=== PATIENT | male | born 1995 | race Caucasian/White ===

== ENCOUNTER 2016-11-29 19:19 | Emergency (ER) | payer MEDICAID ==
[2016-11-29 19:59] LABS: % IMMATURE GRANULYOCYTES 0.2 % (0.0-1.1); ABSOLUTE IMMATURE GRANULOCYTES 0.02 10^3/uL (0.00-0.10); ADD DIFF? NO; ADD MORPH? NO; ADD SCAN? NO; ATYPICAL LYMPHOCYTE FLAG 10 (0-99); FRAGMENT RBC FLAG 0 (0-99); HEMATOCRIT 45.2 % (40.0-51.0); HEMOGLOBIN 15.5 g/dL (13.7-17.5); LEFT SHIFT FLG 0 (0-99); LIPEMIA HEMOLYSIS FLAG 90 (0-99); MEAN CELL HEMOGLOBIN 30.9 pg (27.9-34.1); MEAN CELL HEMOGLOBIN CONCENTR. 34.3 g/dL (32.4-36.7); MEAN PLATELET VOLUME 8.7 fL (8.7-11.7); PLATELET CLUMPS FLAG 0 (0-99); PLATELET COUNT 308 10^3/uL (150-400); RED BLOOD CELL COUNT 5.02 10^6/uL (4.40-6.38); RED CELL DISTRIBUTION WIDTH 12.3 % (11.5-15.2)
[2016-11-29 20:06] LABS: ANION GAP 11 mEq/L (8-16); CALCIUM 9.5 mg/dL (8.5-10.4); CARBON DIOXIDE 21 mEq/l (22-31); CHLORIDE 108 mEq/L (97-110); CREATININE 0.8 mg/dL (0.7-1.3); ETHANOL SERUM < 10 mg/dL (0-10); GLOMERULAR FILTRATION RATE > 60; GLUCOSE 91 mg/dL (70-100); POTASSIUM 3.9 mEq/L (3.5-5.2); SALICYLATE < 1.0 mg/dL (2.0-20.0); SODIUM 140 mEq/L (134-144)
[2016-11-29] MEDS ORDERED: NICOTINE 14 MG/24 HR PATCH TD ONE (21:02)
[2016-11-29] MEDS ORDERED: LORazepam 1 MG TAB ONE (21:57)
[2016-11-29] MEDS ORDERED: LORazepam 1 MG TAB PO ONE ×2 (21:58→23:49)
--- NOTE | 2016-11-29 22:09 | EDPHY ---
H & P Stated Complaint: SI Source: Patient, Family Exam Limitations: No limitations - Personal History Current Tetanus/Diphtheria Vaccine: Yes Current Tetanus Diphtheria and Acellular Pertussis (TDAP): Yes - Medical/Surgical History Hx Asthma: No Hx Chronic Respiratory Disease: No Hx Diabetes: No Hx Cardiac Disease: No Hx Renal Disease: No Hx Cirrhosis: No Hx Alcoholism: No Hx HIV/AIDS: No Hx Splenectomy or Spleen Trauma: No - Social History Smoking Status: Unknown if ever smoked HPI/ROS: CHIEF COMPLAINT: M1, suicidal ideation, depression HISTORY OF PRESENT ILLNESS: Patient presents from [facility] with an M1 hold due to suicidal ideation. He presented there today with his mother due to depression and thoughts of self-harm. He will not elaborate on how he wanted to hurt himself. He does express intent of wanting to harm himself. He has a history of depression, not currently on medications. He was on Prozac in the past that did not benefit him. He has had no recent trauma or injury. He has no ingestion of any medications today. He has not attempted to harm himself today. He does have a history of recent break-up from a significant other this week. He will not provide any other information thus far. PSYCHIATRIC DIAGNOSES: Depression, previous suicide attempt PRIOR PSYCHIATRIC EVALUATIONS: Multiple, most recently 5 years ago M1/DETAINER: 6:40 p.m. by [facility] professional REVIEW OF SYSTEMS: Ten systems reviewed and are negative unless otherwise noted in the HPI EXAMINATION General Appearance: Alert, no distress, pacing the room Head: normocephalic, atraumatic Eyes: Pupils equal and round, no conjunctival pallor or injection ENT, Mouth: Mucous membranes moist Neck: Normal inspection Respiratory: Lungs are clear to auscultation. No wheezing, rhonchi or crackles Cardiovascular: Regular rate and rhythm. No murmur. Gastrointestinal: No abdominal distention Back: Normal appearance Neurological: GCS 15. A&O, nonfocal, normal gait Skin: Warm and dry, no rash Extremities: Nontender, no pedal edema Psychiatric: Flat affect. Depressed mood. Admits suicidal ideation. Denies any actual plan. He does admit to intent of self-harm. Denies any ingestion of pills. Denies any attempt to actually harm himself today DIFFERENTIAL DIAGNOSES: Including but not limited to major depression, suicidal ideation, suicide attempt, suicidal intent, mood disorder MDM: 7:30 p.m. Suicidal ideation without a clear plan. Mother corroborates that he has attempted suicide in the past twice. He has been diagnosed with depression but currently on medication. He is here on an M1 hold completed at 6:40 p.m. by mental [facility]. 9:00 p.m. Patient has been medically cleared and is awaiting formal evaluation and placement. He is in no acute distress. He is pacing but cooperative otherwise. 10:05 p.m. Notified by ADORE mtz. Patient is pacing and attempting to leave the emergency department. He has requested Ativan by mouth and I agree this would benefit the patient. He still awaiting placement at this time. 11:45 p.m. Notified by Araceli AVITIA. Patient attempted to elope from the emergency department again. He was restrained with soft, passive her strengths and this has been documented. I have ordered another dose of Ativan. He is still awaiting placement at this time. 1:43 a.m. Patient is still pacing in his room. He is verbalized that he will stay in the room and not attempt to leave again. We are still awaiting placement at this time. 1:57 a.m. At this time I have discussed the case with Dr. Cantrell. She will assume care of the patient. Please see her note for final disposition. SUPERVISION: Patient was evaluated in conjunction with the supervising physician. Please see their note for details. (Willie Robert) Constitutional: Initial Vital Signs Temperature (C) 36.9 C 11/29/16 19:30 Heart Rate 80 11/29/16 19:30 Respiratory Rate 14 11/29/16 19:30 Blood Pressure 122/78 H 11/29/16 19:30 O2 Sat (%) 94 11/29/16 19:30 O2 Delivery Mode Room Air Allergies/Adverse Reactions: No Known Allergies Allergy (Unverified 11/29/16 21:20) Medical Decision Making ED Course/Re-evaluation: 7:00 a.m.- The patient has been stable throughout my shift. At 2:30 a.m. the patient was evaluated by the mental health worker. The plan is to place the patient voluntarily at a crisis stabilization unit. I have ordered the patient's usual daily medications. The case will be signed out to the oncoming provider, Dr. Angelo. (Ursula Cantrell) The patient was stable throughout my shift. Care was signed over to Dr. Cantrell (Ayaz Simon) - Data Points Laboratory Results: Laboratory Results 11/29/16 19:50 11/29/16 19:50 Medications Given: Discontinued Medications Lorazepam (Ativan) 1 mg PO EDNOW ONE Stop: 11/29/16 21:59 Last Admin: 11/29/16 22:05 Dose: 1 mg Lorazepam (Ativan) 1 mg PO EDNOW ONE Stop: 11/29/16 23:50 Last Admin: 11/30/16 00:09 Dose: 1 mg Nicotine (Nicoderm Cq) 14 mg TD EDNOW ONE Stop: 11/29/16 21:03 Last Admin: 11/29/16 21:20 Dose: 14 mg Departure - Departure Disposition: Other Psych, Not [place] Clinical Impression: Suicidal ideation Condition: Good Referrals: Patient,NotPresent [Unknown] - As per Instructions
[2016-11-30 10:36] VITALS: BP 144/79; PULSE 98; RESP 18; TEMP 98.6; O2SAT 96
== END 2016-11-30 10:38 ==
DX: R45.851 Suicidal ideations (principal)
CPT/HCPCS: 80305; G0480

== ENCOUNTER 2017-01-09 16:20 | Emergency (ER) | payer MEDICAID ==
--- NOTE | 2017-01-09 16:59 | EDPHY ---
H & P Stated Complaint: SI-M1 Source: Patient Exam Limitations: No limitations - Personal History Current Tetanus/Diphtheria Vaccine: Unsure Current Tetanus Diphtheria and Acellular Pertussis (TDAP): Unsure - Medical/Surgical History Hx Asthma: No Hx Chronic Respiratory Disease: No Hx Diabetes: No Hx Cardiac Disease: No Hx Renal Disease: No Hx Cirrhosis: No Hx Alcoholism: No Hx HIV/AIDS: No Hx Splenectomy or Spleen Trauma: No Other PMH: PMH: Denies - Family History Significant Family History: No pertinent family hx - Social History Smoking Status: Unknown if ever smoked Alcohol Use: Sober Drug Use: None Time Seen by Provider: 01/09/17 16:51 HPI/ROS: CHIEF COMPLAINT: Depression HISTORY OF PRESENT ILLNESS: The patient is a 21-year-old female transitioning to male who prefers to be called Torito who is sent from [facility] on a M1 hold for suicidal ideations. He denies any attempt to harm himself today. No drugs or alcohol recently. History of depression. History of psychiatric hospitalization last month. REVIEW OF SYSTEMS: Constitutional: denies: chills, fever, recent illness, recent injury EENTM: denies: blurred vision, double vision, nose congestion Respiratory: denies: cough, shortness of breath Cardiac: denies: chest pain, irregular heart rate, lightheadedness, palpitations Gastrointestinal/Abdominal: denies: abdominal pain, diarrhea, nausea, vomiting, blood streaked stools Genitourinary: denies: dysuria, frequency, hematuria, pain Musculoskeletal: denies: joint pain, muscle pain Skin: denies: lesions, rash, jaundice, bruising Neurological: denies: headache, numbness, paresthesia, tingling, dizziness, weakness Hematologic/Lymphatic: denies: blood clots, easy bleeding, easy bruising Immunologic/allergic: denies: HIV/AIDS, transplant EXAM: GENERAL: Decreased affect HEAD: Atraumatic, normocephalic. EYES: Pupils equal round and reactive to light, extraocular movements intact, sclera anicteric, conjunctiva are normal. ENT: TMs normal, nares patent, oropharynx clear without exudates. Moist mucous membranes. NECK: Normal range of motion, supple without lymphadenopathy or JVD. LUNGS: Breath sounds clear to auscultation bilaterally and equal. No wheezes rales or rhonchi. HEART: Regular rate and rhythm without murmurs, rubs or gallops. ABDOMEN: Soft, nontender, normoactive bowel sounds. No guarding, no rebound. No masses appreciated. BACK: No CVA tenderness, no spinal tenderness, step-offs or deformities EXTREMITIES: Normal range of motion, no pitting or edema. No clubbing or cyanosis. NEUROLOGICAL: Cranial nerves II through XII grossly intact. Normal speech, normal gait. 5/5 strength, normal movement in all extremities, normal sensation PSYCH: Depressed affect, minimal interaction, does answer most questions appropriately SKIN: Warm, dry, normal turgor, no visible rashes or lesions. (Richard Hu) Constitutional: Initial Vital Signs Temperature (C) 36.8 C 01/09/17 16:35 Heart Rate 105 H 01/09/17 16:35 Respiratory Rate 18 01/09/17 16:35 Blood Pressure 123/81 H 01/09/17 16:35 O2 Sat (%) 96 01/09/17 16:35 O2 Delivery Mode Room Air Allergies/Adverse Reactions: aripiprazole [From [employer]] Allergy (Verified 01/09/17 16:46) Home Medications: Medication Instructions Recorded [place] Carbonate Tab 300 mg (*) 01/09/17 Prazosin HCl 01/09/17 Vistaril 50MG (RX) 01/09/17 Wellbutrin Xl 01/09/17 ZyPREXA 10 mg/2 ml Inj (*) 01/09/17 Medical Decision Making ED Course/Re-evaluation: 9:50 p.m. Patient has been evaluated by Mental Health. They plan to admit him. We will give him his nighttime medications. 11:00 p.m. care transferred to Dr. Dion Khalil. (Richard Hu) Other Provider: I assumed care of this patient at 7:[address] Dion Khalil. At 7:30 a.m. was notified by nursing staff that the patient has been accepted for transfer and admission to [facility] in [place]. Transfer paperwork was signed by myself. (Kate Solomon) - Data Points Laboratory Results: Laboratory Results 01/09/17 17:08 01/09/17 17:08 Medications Given: Discontinued Medications Shanor-Northvue Carbonate (Eskalith Cr) 900 mg PO EDNOW ONE Stop: 01/09/17 22:01 Last Admin: 01/09/17 22:09 Dose: 900 mg Lorazepam (Ativan) 1 mg PO EDNOW ONE Stop: 01/09/17 19:27 Last Admin: 01/09/17 19:28 Dose: 1 mg Nicotine (Nicoderm Cq) 21 mg TD EDNOW ONE Stop: 01/09/17 17:32 Last Admin: 01/09/17 17:32 Dose: 21 mg Olanzapine (Olanzapine) 10 mg PO EDNOW ONE Stop: 01/09/17 22:01 Last Admin: 01/09/17 22:09 Dose: 10 mg Trazodone HCl (Trazodone) 150 mg PO EDNOW ONE Stop: 01/09/17 22:16 Last Admin: 01/09/17 22:20 Dose: 150 mg Departure - Departure Disposition: Other Psych, Not [place] Clinical Impression: Suicidal ideation Condition: Good Referrals: NONE *PRIMARY CARE P,. [Primary Care Provider] - As per Instructions
[2017-01-09 17:23] LABS: % IMMATURE GRANULYOCYTES 0.1 % (0.0-1.1); ABSOLUTE IMMATURE GRANULOCYTES 0.01 10^3/uL (0.00-0.10); ADD DIFF? NO; ADD MORPH? NO; ADD SCAN? NO; ATYPICAL LYMPHOCYTE FLAG 10 (0-99); FRAGMENT RBC FLAG 0 (0-99); HEMATOCRIT 41.5 % (38.0-47.0); HEMOGLOBIN 13.7 g/dL (12.6-16.3); LEFT SHIFT FLG 0 (0-99); LIPEMIA HEMOLYSIS FLAG 80 (0-99); MEAN CELL HEMOGLOBIN 30.9 pg (27.9-34.1); MEAN CELL VOLUME 93.5 fL (81.5-99.8); MEAN PLATELET VOLUME 8.1 fL (8.7-11.7); PLATELET CLUMPS FLAG 0 (0-99); PLATELET COUNT 318 10^3/uL (150-400); RED BLOOD CELL COUNT 4.44 10^6/uL (4.18-5.33); RED CELL DISTRIBUTION WIDTH 12.2 % (11.5-15.2)
[2017-01-09] MEDS ORDERED: NICOTINE 21 MG/24 HR PATCH TD ONE (17:31)
[2017-01-09 17:40] LABS: ANION GAP 13 mEq/L (8-16); CALCIUM 9.7 mg/dL (8.5-10.4); CARBON DIOXIDE 23 mEq/l (22-31); CHLORIDE 106 mEq/L (97-110); CREATININE 0.9 mg/dL (0.6-1.0); ETHANOL SERUM < 10 mg/dL (0-10); GLOMERULAR FILTRATION RATE > 60; GLUCOSE 103 mg/dL (70-100); POTASSIUM 4.2 mEq/L (3.5-5.2); SODIUM 142 mEq/L (134-144)
[2017-01-09] MEDS ORDERED: LORazepam 1 MG TAB ONE (19:23)
[2017-01-09] MEDS ORDERED: LORazepam 1 MG TAB PO ONE (19:26)
[2017-01-09] MEDS ORDERED: LITHIUM CARBONATE ER 450 MG TAB PO ONE (22:00)
[2017-01-09] MEDS ORDERED: OLANZapine 5 MG TAB PO ONE (22:00)
[2017-01-10 06:41] VITALS: O2SAT 97
[2017-01-10 07:15] VITALS: RESP 16
[2017-01-10 08:07] VITALS: BP 112/67; PULSE 69; TEMP 97.5
== END 2017-01-10 09:15 ==
LOC: EDSEX 16:20
DX: R45.851 Suicidal ideations (principal)
CPT/HCPCS: 80305; G0480

== ENCOUNTER 2017-03-05 16:41 | Emergency (ER) | payer MEDICAID ==
[2017-03-05] MEDS ORDERED: OLANZapine DISINTEGR 10 MG TAB ONE (17:00)
--- NOTE | 2017-03-05 17:00 | EDPHY ---
H & P Smoking Status: Unknown if ever smoked HPI/ROS: CHIEF COMPLAINT: M1 Hold HISTORY OF PRESENT ILLNESS: The patient is a 21-year-old female transitioning to male, prefers to be called Torito, who is here on an M1 hold for SI/HI. The patient was at [facility]. After stabilization, they discharged him to the [facility]. The patient left the [facility] and PD went to pick him up. When PD tried to take the patient back to the [facility], he told them he was suicidal and homicidal. He was placed on an M1 hold by PD. History is quite limited, as the patient refuses to answer most of my questions. He denies recent sickness. REVIEW OF SYSTEMS: A comprehensive 10 point review of systems is otherwise negative aside from elements mentioned in the history of present illness. (Cheryl Tirado) Past Medical/Surgical History: Unknown. (Cheryl Tirado) Social History: Unknown. (Cheryl Tirado) Physical Exam: General Appearance: Refuses to answer questions or allow me to touch him ( stethoscope is ok) Eyes: Pupils equal and round ENT, Mouth: Mucous membranes moist Neck: Normal inspection Respiratory: Lungs are clear to auscultation Cardiovascular: Regular rate and rhythm Gastrointestinal: Abdomen is soft and non-tender Neurological: A&O, nonfocal, normal gait Skin: Warm and dry Extremities: normal inspection Psychiatric: Pacing, Agitated, uncooperative, threatening (Cheryl Tirado) Constitutional: Initial Vital Signs Temperature (C) 36.7 C 03/05/17 16:57 Heart Rate 88 03/05/17 16:57 Respiratory Rate 18 03/05/17 16:57 Blood Pressure 129/86 H 03/05/17 16:57 O2 Sat (%) 96 03/05/17 16:57 O2 Delivery Mode Room Air O2 (L/minute) 95 Allergies/Adverse Reactions: aripiprazole [From [employer]] Allergy (Verified 01/09/17 16:46) Home Medications: Medication Instructions Recorded [place] Carbonate Tab 300 mg (*) 01/09/17 Prazosin HCl 01/09/17 Vistaril 50MG (RX) 01/09/17 Wellbutrin Xl 01/09/17 ZyPREXA 10 mg/2 ml Inj (*) 01/09/17 Celexa 03/05/17 GABAPENTIN 03/05/17 KLONOPIN 03/05/17 Medical Decision Making - Diagnostics Imaging Results: Imaging Impressions Hand X-Ray 03/09/17 12:22 Impression: Nothing acute identified. ED Course/Re-evaluation: 6:20 p.m. the patient is going to be admitted. He has been evaluated. She is requesting some Zyprexa and gabapentin. 11:00 p.m. care transferred to Dr. Ursula Cantrell. Patient is sleeping and we are awaiting placement. (Richard Hu) 7:00 a.m.- . The patient was stable throughout my shift. There were no events overnight. He is awaiting placement at this time. The case will be signed out to Dr. Nuñez at change of shift. (Ursula Cantrell) Patient here on M1 hold. Patient refuses to answer my questions. He is pacing the room and does not want me to examine him. Patient declines blood draw per nursing staff. He is refusing Zyprexa. 5:30 p.m.: According to nursing staff, patient is agreeing to blood draw and is requesting something to help him calm down. Zyprexa given. Plan to administer 1mg Ativan IV. Urine toxicology is positive for benzodiazepines. Medically cleared for psych eval. 11pm--pt much more calm. Signed over to Dr. Khalil at shift change. Dispo pending. (Cheryl Tirado) I assumed care of this patient at 7 AM on 03/07/[address] Cantrell. Patient has no new complaints at the time of my interview. He tells me that he is "always" suicidal, has no active plan now. He would like to be discharged. His care will be transferred to Dr. Monaco at 3 PM. (Talisha Nuñez) 1242AM: Patient has been evaluated by mental health. They recommend inpatient psychiatric hospitalization will perform a bed search at this time. 0622AM 04/07/17: No acute events overnight. Patient has been sleeping. Patient signed over to Dr. Cullen. 0639AM: 04/08/17: No acute events overnight. Sleeping. Patient was placed on a 2nd M1 hold previous to my shift. Still pending placement. Signed over to Dr. Sehikh (Dion Khalil) Other Provider: I assumed care of the patient at 7 o'clock in the morning pending psychiatric disposition. Update at 11:00 a.m.: Psychiatric placement is still pending. The patient was seen by Mental Health. They feel that he does need to be maintained on a 72 hour mental health hold even after this one expires. The patient will be turned over to Dr. Mcdonough at shift change pending psychiatric disposition. (Blas Cullen) Care assumed at 6:30 a.m. with plan per Psychiatry mining consultant to admit, pending disposition. Patient still on a mental health hold. Right hand x-ray for pain after trauma is negative (Nakul Sheikh) Care Turn Over: 0700 care assumed by me from Dr. Khalil pending placement. [address] Hu pending placement. Patient did get increasingly agitated during my stay and required p.o. Zyprexa. Further issues during my care. 1500 03/07/17 care assumed by me from Dr. Nuñez pending placement. Patient has becoming increasingly agitated and attempt to walk of the department. She is given Zyprexa. She was also given some Ativan as well. 2300 patient signed out to Dr. Khalil pending placement. (Ravinder Monaco) - Data Points Laboratory Results: Laboratory Results 03/05/17 15:54 03/05/17 15:54 Medications Given: Discontinued Medications Gabapentin (Neurontin) 600 mg PO EDNOW ONE Stop: 03/06/17 18:29 Last Admin: 03/06/17 18:42 Dose: 600 mg Haloperidol Lactate (Haldol Injection) 5 mg IM EDNOW ONE Stop: 03/05/17 17:08 Last Admin: 03/05/17 18:02 Dose: Not Given Haloperidol Lactate (Haldol Injection) 5 mg IM EDNOW ONE Stop: 03/07/17 19:43 Last Admin: 03/07/17 19:55 Dose: 5 mg Lorazepam (Ativan Injection) 1 mg IVP EDNOW ONE Stop: 03/05/17 17:08 Last Admin: 03/05/17 18:03 Dose: 1 mg Lorazepam (Ativan Injection) 1 mg IVP EDNOW ONE Stop: 03/05/17 17:49 Last Admin: 03/05/17 17:51 Dose: 1 mg Lorazepam (Ativan) 1 mg PO EDNOW ONE Stop: 03/06/17 02:55 Last Admin: 03/06/17 02:57 Dose: 1 mg Lorazepam (Ativan) 1 mg PO EDNOW ONE Stop: 03/07/17 16:15 Last Admin: 03/07/17 16:18 Dose: 1 mg Lorazepam (Ativan Injection) 2 mg IM EDNOW ONE Stop: 03/07/17 19:44 Last Admin: 03/07/17 19:55 Dose: 2 mg Lorazepam (Ativan) 1 mg PO EDNOW ONE Stop: 03/09/17 11:10 Last Admin: 03/09/17 11:11 Dose: 1 mg Nicotine (Nicoderm Cq) 21 mg TD EDNOW ONE Stop: 03/05/17 17:49 Last Admin: 03/05/17 17:50 Dose: 21 mg Nicotine (Nicoderm Cq) 21 mg TD EDNOW ONE Stop: 03/06/17 18:41 Last Admin: 03/06/17 18:42 Dose: 21 mg Nicotine (Nicoderm Cq) 21 mg TD EDNOW ONE Stop: 03/07/17 15:12 Last Admin: 03/07/17 15:30 Dose: 21 mg Olanzapine (Zyprexa Zydis) 10 mg PO EDNOW ONE Stop: 03/05/17 17:16 Last Admin: 03/05/17 17:20 Dose: 10 mg Olanzapine (Zyprexa Im Injection) 5 mg IM EDNOW ONE Stop: 03/06/17 11:06 Last Admin: 03/06/17 11:06 Dose: 5 mg Olanzapine (Olanzapine) 10 mg PO ONCE ONE Stop: 03/06/17 18:29 Last Admin: 03/06/17 18:42 Dose: Not Given Olanzapine (Zyprexa Zydis) 10 mg PO EDNOW ONE Stop: 03/06/17 18:42 Last Admin: 03/06/17 18:43 Dose: 10 mg Olanzapine (Olanzapine) 5 mg PO ONCE ONE Stop: 03/07/17 18:38 Last Admin: 03/07/17 18:45 Dose: 5 mg Simethicone (Mylicon) 80 mg PO EDNOW ONE Stop: 03/07/17 15:12 Last Admin: 03/07/17 15:30 Dose: 80 mg Zolpidem Tartrate (Ambien) 5 mg PO EDNOW ONE Stop: 03/06/17 20:56 Last Admin: 03/06/17 20:58 Dose: 5 mg Zolpidem Tartrate (Ambien) 10 mg PO EDNOW ONE Stop: 03/08/17 20:23 Last Admin: 03/08/17 20:28 Dose: 10 mg Departure - Departure Disposition: Other Psych, Not [place] Clinical Impression: Suicidal ideation Condition: Good Referrals: Patient,NotPresent [Unknown] - As per Instructions Report Scribed for: Cheryl Tirado Report Scribed by: Roseline Nj Date of Report: 03/05/17 Time of Report: 16:55 Physician Review and Approval Statement: 03/05/17 16:55 Portions of this note were transcribed by a medical affairs specialist. I personally performed the history, physical exam, and medical decision-making; and confirmed the accuracy of the information in the transcribed note. (Cheryl Tirado)
[2017-03-05] MEDS ORDERED: HALOPERIDOL LACT 5 MG/ML INJ ONE (17:07)
[2017-03-05] MEDS ORDERED: HALOPERIDOL LACT 5 MG/ML INJ IM ONE (17:07)
[2017-03-05] MEDS ORDERED: LORazepam 2 MG/ML INJ ONE (17:07)
[2017-03-05] MEDS ORDERED: LORazepam 2 MG/ML INJ IVP ONE ×2 (17:07→17:48)
[2017-03-05] MEDS ORDERED: OLANZapine DISINTEGR 10 MG TAB PO ONE (17:15)
[2017-03-05] MEDS ORDERED: NICOTINE 21 MG/24 HR PATCH TD ONE ×2 (17:27→17:48)
[2017-03-05 18:00] LABS: % IMMATURE GRANULYOCYTES 0.2 % (0.0-1.1); ABSOLUTE IMMATURE GRANULOCYTES 0.02 10^3/uL (0.00-0.10); ADD DIFF? NO; ADD MORPH? NO; ADD SCAN? NO; ATYPICAL LYMPHOCYTE FLAG 0 (0-99); FRAGMENT RBC FLAG 0 (0-99); HEMATOCRIT 44.4 % (40.0-51.0); HEMOGLOBIN 14.8 g/dL (13.7-17.5); LEFT SHIFT FLG 0 (0-99); LIPEMIA HEMOLYSIS FLAG 80 (0-99); MEAN CELL HEMOGLOBIN CONCENTR. 33.3 g/dL (32.4-36.7); MEAN CELL VOLUME 92.9 fL (81.5-99.8); MEAN PLATELET VOLUME 8.6 fL (8.7-11.7); PLATELET CLUMPS FLAG 10 (0-99); PLATELET COUNT 312 10^3/uL (150-400); RED BLOOD CELL COUNT 4.78 10^6/uL (4.40-6.38); RED CELL DISTRIBUTION WIDTH 12.1 % (11.5-15.2)
[2017-03-05 18:23] LABS: ANION GAP 14 mEq/L (8-16); CALCIUM 9.8 mg/dL (8.5-10.4); CARBON DIOXIDE 22 mEq/l (22-31); CHLORIDE 103 mEq/L (97-110); CREATININE 0.9 mg/dL (0.7-1.3); ETHANOL SERUM < 10 mg/dL (0-10); GLOMERULAR FILTRATION RATE > 60; GLUCOSE 82 mg/dL (70-100); SODIUM 139 mEq/L (134-144)
[2017-03-06] MEDS ORDERED: LORazepam 1 MG TAB PO ONE (02:54)
[2017-03-06] MEDS ORDERED: OLANZapine DISINTEGR 5 MG TAB ONE (10:57)
[2017-03-06] MEDS ORDERED: OLANZapine 10 MG/2 ML VIAL ONE (10:59)
[2017-03-06] MEDS ORDERED: OLANZapine 10 MG/2 ML VIAL IM ONE (11:05)
[2017-03-06] MEDS ORDERED: GABAPENTIN 300 MG CAP PO ONE (18:28)
[2017-03-06] MEDS ORDERED: OLANZapine 10 MG TAB PO ONE (18:28)
[2017-03-06] MEDS ORDERED: OLANZapine DISINTEGR 10 MG TAB ONE (18:30)
[2017-03-06] MEDS ORDERED: NICOTINE 21 MG/24 HR PATCH TD ONE ×2 (18:31→18:40)
[2017-03-06] MEDS ORDERED: OLANZapine DISINTEGR 10 MG TAB PO ONE (18:41)
[2017-03-06] MEDS ORDERED: ZOLPIDEM TARTRATE 5 MG TAB PO ONE (20:55)
[2017-03-07] MEDS ORDERED: SIMETHICONE 80 MG TAB CHEW PO ONE (15:11)
[2017-03-07] MEDS ORDERED: NICOTINE 21 MG/24 HR PATCH TD ONE (15:11)
[2017-03-07] MEDS ORDERED: LORazepam 1 MG TAB PO ONE (16:14)
[2017-03-07] MEDS ORDERED: OLANZapine 5 MG TAB PO ONE (18:37)
[2017-03-07] MEDS ORDERED: HALOPERIDOL LACT 5 MG/ML INJ ONE (19:29)
[2017-03-07] MEDS ORDERED: LORazepam 2 MG/ML INJ ONE (19:29)
[2017-03-07] MEDS ORDERED: HALOPERIDOL LACT 5 MG/ML INJ IM ONE (19:42)
[2017-03-07] MEDS ORDERED: LORazepam 2 MG/ML INJ IM ONE (19:43)
[2017-03-08] MEDS ORDERED: ZOLPIDEM TARTRATE 5 MG TAB PO ONE (20:22)
[2017-03-08 23:40] VITALS: RESP 16
[2017-03-09] MEDS ORDERED: LORazepam 1 MG TAB ONE (11:08)
[2017-03-09] MEDS ORDERED: LORazepam 1 MG TAB PO ONE ×2 (11:09→16:56)
[2017-03-09 15:57] VITALS: TEMP 98.2
[2017-03-09 19:16] VITALS: BP 122/82; PULSE 80; O2SAT 96
== END 2017-03-09 19:16 ==
LOC: EDUNIT#
DX: R45.851 Suicidal ideations (principal); M79.641 Pain in right hand
CPT/HCPCS: 80305; 96374; G0480; J2060

== ENCOUNTER 2017-03-09 19:35 | Inpatient (IN) | payer MEDICAID ==
[2017-03-09 20:21] VITALS: O2SAT 96
[2017-03-09] MEDS ORDERED: ACETAMINOPHEN 325 MG TAB PO PRN (20:59)
[2017-03-09] MEDS ORDERED: MAGNESIUM HYDROXIDE 30 ML UDCUP PO PRN (21:00)
[2017-03-10] MEDS: LORazepam 0.5 MG TAB PO PRN ×3 (08:52→19:45)
[2017-03-10] MEDS: NICOTINE POLACRILEX 2 MG GUM B PRN ×2 (14:51→17:31)
--- NOTE | 2017-03-10 15:04 | SOAPPROG ---
SOAP Progress Note Assessment/Plan: Assessment: Plan: 03/10/17 15:05 Unable to properly assess patient due to uncooperative nature. His behavior and hx are strongly suggestive of Borderline personality. He is regressed and childlike. Will make myself available and attempt to form a therapeutic alliance. I will hold meds until I am able to obtain an adequate history. Subjective: Pt seen, discussed with staff, chart reviewed. He is a 21 y/o C transgendered F to M. He was admitted due to SI/HI. He was recently admitted to [facility]. I attempted to conduct an admission interview but pt is uncooperative. He answers all questions with "I don't know" or "I don't remember." This includes questions such as "What brought you to the hospital?" and "When were you in [place]?" He abruptly discontinues interview when I challenge him on these behaviors and ask him to please participate in the interview. He yells, "I'm not going to talk to you if you don't believe me!" and leaves the room. Objective: Vital Signs Temp Pulse Resp BP Pulse Ox 36.8 C 85 14 122/71 H 96 03/09/17 20:20 03/09/17 20:20 03/09/17 20:20 03/09/17 20:20 03/09/17 20:20 MSE: Hostile, guarded. Affect is constricted, irritable. Mood is "terrible." TP linear. TC reveals no evidence of psychosis. Does not answer questions re : SI/HI/. - Time Spent With Patient Time Spent With Patient: 25" ICD10 Worksheet Patient Problems: Problems Problem Status Onset Suicidal ideation Acute
--- NOTE | 2017-03-10 15:15 | GHP ---
[f rep st] HISTORY AND PHYSICAL DATE OF ADMISSION: 03/09/2017 CHIEF COMPLAINT: Depression. HISTORY OF PRESENT ILLNESS: A 21-year-old female with a known history of severe depression, liya shelton treated at an inpatient psychiatric unit. The patient was transitioned from there to the [facility]. The patient was found to be acutely suicidal and brought back to the emergency department for evaluation. The patient is currently transitioning female to male. Denies to me any acute chest pa in or shortness of breath. Reports occasional headaches. Denies vision changes. Reports jaw pain from grinding teeth at night. Denies abdominal discomfort, nausea, diarrhea, dysuria, hematuria or lower extremity edema. PAST MEDICAL HISTORY: Depression. SOCIAL HISTORY: Patient smokes 8 cigarettes a day. Denies alcohol reports smoking marijuana throug hout the day. FAMILY HISTORY: Negative for heart or lung disease. REVIEW OF SYSTEMS: A 10-point review of systems is negative with the exception of that reported in the HPI. PHYSICAL EXAMINATION: VITAL SIGNS: Blood pressure 122/71, heart rate 85, respiratory rate 14, 96% on room air, 36.8. GENERAL: This is a healthy-appearing young female in no acute distress. HEENT: Notable for moist mucous membranes. Eye exam is negative for any icterus. CARDIAC: Patient is r egular rate and rhythm. PULMONARY: Clear to auscultation bilaterally. GASTROINTESTINAL: Positive bowel sounds. ABDOMEN: Soft and nontender. MUSCULOSKELETAL: Negative for any lower extremity ed jude. There is swelling of the right 3rd digit at the MCP joint. SKIN: Negative for any rashes. N EUROLOGIC: The patient is alert and oriented x3. PSYCHIATRIC: Depressed and withdrawn on my inter view and examination. DATA: White count 8.8, hematocrit 44, platelets of 312. Creatinine 0.9. Urine tox positive for be nzodiazepines. X-ray of the right hand, which I personally reviewed and interpreted, shows no acute fractures. ASSESSMENT AND PLAN: This is a 21-year-old female, transitioning to male patient, with severe depre ssion. 1. Acute right hand pain. Patient reports punching a wall. Imaging of the hand is negative for an y acute fractures. Can treat with p.r.n. Tylenol and ibuprofen. 2. Severe depression. Patient will be actively managed by the inpatient psychiatry team. 3. Prophylaxis: Patient is ambulating. 4. Diet: Regular. 5. Disposition: Per the primary team. I have discussed the case with the RN. She has no acute needs. /[id number]/MODL
[2017-03-10] MEDS: OLANZapine 5 MG TAB PO PRN (19:45)
[2017-03-10] MEDS: MELATONIN 3 MG TAB PO PRN (22:02)
[2017-03-11] MEDS ORDERED: traZODone 50 MG TAB PO PRN (13:01)
--- NOTE | 2017-03-11 13:23 | SOAPPROG ---
SOAP Progress Note Assessment/Plan: Assessment: 21yo transgender male admitted with SI/HI from crisis clinic after discharge from [facility] Has been hospitalized several times since 11/2016 after relationship loss, and previously only 2x inpt at age 16 (OD on psych meds) and 17yo. 03/11/17 13:10 per staff, slept 10hr. not attending groups. states his meds were d/cd at [facility] and didn't feel he had gotten any benefit from that hosp calm, generally cooperative with interview, casually dressed, neatly kempt, decr spontaneity of speech, no eye contact (looking down at ground throughout interview), nml vol/rate speech but monotone, mood irritable, does not feel depressed, rather "beyond that", +hopeless, affect blunted/flat/apathetic; endorses chronic SI, "since 4th grade," no current plan but +intent someday, states he can maintain safety in hospital and tell staff if feeling unsafe, "I did yesterday" (and received prn). linear responses to questions but void of detail and with decr effort vs guarded at times (stating "I don't know" , "I'm not sure", "I don't see why this is relevant" and "I'm tired of answering all the same questions" over several hospitalizations in last few months). denied current AH/VH but AH do occur quite regularly, often self-deprecating and internal; denied any plan or intent to harm anyone specifically, i/j limited, cognition conversationally intact, A&Ox4. PLAN: -Discussed M-1 expiration this pm, and patient declined to sign in voluntarily. continues to express SI and with intent to although no specific plan at this time, +hopeless for any future. has hx of suicide attempts and self-harm. not felt safe for discharge at this time, and was informed of his being placed on STC, including informed of rights, notification of 3rd green party, and right to legal representation. -Discussed medication options for AH and mood. Agreed to Risperdal trial after brief discussion of risks/benefits. Will start 0.5mg bid, 1st dose now. Didn't like wt gain of Zyprexa, allergy to Abilify w/tongue swelling, has required IM haldol involuntarily in recent past. +/- effect with No. Will check w/pharmacy about Abilify allergy and any related incr risk w/ Risperdal -Benadryl 25mg prn EPS or s/e. -Prefers Klonopin to Ativan for anxiety, will start 0.5mg BID. Cont prn Ativan for now. -Requested Trazodone for insomnia. States 200mg worked in past. Reports episode of AM hypotension possibly related to Prazosin in past. Will start 100mg qhs, with 50mg prn and incr as tolerated. -Collateral from prior inpt hospitalizations, and from psychiatrist at [facility] whom he liked. -Cont on SP-1. Initially vague with sophia for safety but did not want 1:1 and stated he can talk with staff if feeling unsafe, "I did last night" and requested prn. No specific plan to harm self, although would if had a gun ideally, but has no access, but does report intent to kill himself eventually b/ c hopeless about future. -States he likes art group in community, agreed to try at least the art gp while here. Objective: Vital Signs Temp Pulse Resp BP Pulse Ox 36.8 C 85 14 122/71 H 96 03/09/17 20:20 03/09/17 20:20 03/09/17 20:20 03/09/17 20:20 03/09/17 20:20 - Time Spent With Patient Time Spent With Patient: 75min - Pending Discharge Pending Discharge Within 24 Hours: No Pending Discharge Within 48 Hours: No ICD10 Worksheet Patient Problems: Problems Problem Status Onset Suicidal ideation Acute
[2017-03-11] MEDS ORDERED: diphenhydrAMINE 25 MG CAP PO PRN (14:33)
[2017-03-11] MEDS: clonazePAM 0.5 MG TAB PO SCH ×2 (14:38→19:57)
[2017-03-11] MEDS: risperiDONE 0.5 MG TAB PO SCH ×2 (14:38→19:56)
[2017-03-11] MEDS: NICOTINE POLACRILEX 2 MG GUM B PRN (18:59)
[2017-03-11] MEDS ORDERED: traZODone 100 MG TAB PO SCH (21:00)
[2017-03-11] MEDS: MELATONIN 3 MG TAB PO PRN (21:45)
[2017-03-12] MEDS: risperiDONE 0.5 MG TAB PO SCH (08:22)
[2017-03-12] MEDS: clonazePAM 0.5 MG TAB PO SCH ×2 (08:22→21:34)
[2017-03-12] MEDS ORDERED: QUEtiapine FUMARATE 25 MG TAB PO PRN (16:07)
[2017-03-12] MEDS: MELATONIN 3 MG TAB PO PRN (19:30)
[2017-03-12] MEDS ORDERED: traZODone 100 MG TAB PO SCH (21:00)
--- NOTE | 2017-03-12 21:14 | SOAPPROG ---
SOAP Progress Note Assessment/Plan: Assessment 21yo transgender male admitted with SI/HI from crisis clinic after discharge from [facility] Has been hospitalized several times since 11/2016 after relationship loss, and previously only 2x inpt at age 16 (OD on psych meds) and 17yo. 03/11/17 13:10 per staff, slept 10hr. not attending groups. states his meds were d/cd at [facility] and didn't feel he had gotten any benefit from that hosp calm, generally cooperative with interview, casually dressed, neatly kempt, decr spontaneity of speech, no eye contact (looking down at ground throughout interview), nml vol/rate speech but monotone, mood irritable, does not feel depressed, rather "beyond that", +hopeless, affect blunted/flat/apathetic; endorses chronic SI, "since 4th grade," no current plan but +intent someday, states he can maintain safety in hospital and tell staff if feeling unsafe, "I did yesterday" (and received prn). linear responses to questions but void of detail and with decr effort vs guarded at times (stating "I don't know" , "I'm not sure", "I don't see why this is relevant" and "I'm tired of answering all the same questions" over several hospitalizations in last few months). denied current AH/VH but AH do occur quite regularly, often self-deprecating and internal; denied any plan or intent to harm anyone specifically, i/j limited, cognition conversationally intact, A&Ox4. PLAN: -Discussed M-1 expiration this pm, and patient declined to sign in voluntarily. continues to express SI and with intent to although no specific plan at this time, +hopeless for any future. has hx of suicide attempts and self-harm. not felt safe for discharge at this time, and was informed of his being placed on STC, including informed of rights, notification of 3rd republican, and right to legal representation. -Discussed medication options for AH and mood. Agreed to Risperdal trial after brief discussion of risks/benefits. Will start 0.5mg bid, 1st dose now. Didn't like wt gain of Zyprexa, allergy to Abilify w/tongue swelling, has required IM haldol involuntarily in recent past. +/- effect with No. Will check w/pharmacy about Abilify allergy and any related incr risk w/ Risperdal -Benadryl 25mg prn EPS or s/e. -Prefers Klonopin to Ativan for anxiety, will start 0.5mg BID. Cont prn Ativan for now. -Requested Trazodone for insomnia. States 200mg worked in past. Reports episode of AM hypotension possibly related to Prazosin in past. Will start 100mg qhs, with 50mg prn and incr as tolerated. -Collateral from prior inpt hospitalizations, and from psychiatrist at [place] whom he liked. -Cont on SP-1. Initially vague with sophia for safety but did not want 1:1 and stated he can talk with staff if feeling unsafe, "I did last night" and requested prn. No specific plan to harm self, although would if had a gun ideally, but has no access, but does report intent to kill himself eventually b/ c hopeless about future. -States he likes art group in community, agreed to try at least the art gp while here. 03/12/17 14:19 per staff, slept 10.5 hrs. Pt denies sleep has been good or restful, feels he is counted as sleeping when just lying in bed. Traz 100mg didn't work, nor did adding 50mg afterwards. Melatonin unhelpful, and reports +NM did attend art group today. otherwise not sure how to spend his time, not feeling group attendance is/would be worthwhile or beneficial since has attended them during other hospitalizations without benefit. asking about discharge and meds. feels meds would help him "feel stronger" when going to back to [place]. doesn't feel being in hosp is going to help anything. states most recent d/c plan was to leave and stay w/his mother for a few days (she is renting a room from a friend), "then stay with Shaila" for a couple of days "because I might not see her again after I move (to [place])." Met Shaila about [address] [facility] she apparently retrieved pt belongings from crisis clinic. not sure any meds previously tried have been helpful but admits never on any for enough time to determine if any. benefit. regarding curent meds, reports no med s/e but no benefit either so far. asks about starting an antidepressant, admits [place] seemed to be helpful with irritability but that was all. Denies med side-effects, no EPS. . a bit more engaged in discussing treatment and d/c planning. sml speech rate/vol, affect flat/blunted although with annoyed tone, still with minimal eye contact, +AH recent not now but incr w/stress. denied active SI but +"always", and no plan/intent to harm others but does feel easily irritated by others on unit. -Incr Risp to 1mg BID for mood stabilization and AH. States Zyprexa helped AH but gained 20# -considering antidepr vs mood stabilizer, will also get collateral from outpt psychiatrist at [facility]. whom pt identified as having been helpful thinks Li helped decr irritability. unclear why meds tapered/discontinued during last admission to [facility], altho suspect b/c dx with BPD. Pt agreed to sign ROIs, also for parents to aid in d/c planning -Incr Trazodone to 150mg qhs + 50mg prn -add Seroquel 25mg qhs prn AH/sleep. -cont on STC -cont Klonopin 0.5mg bid, with prn Ativan. Objective: Vital Signs Temp Pulse Resp BP Pulse Ox 36.8 C 85 14 122/71 H 96 03/09/17 20:20 03/09/17 20:20 03/09/17 20:20 03/09/17 20:20 03/09/17 20:20 - Time Spent With Patient Time Spent With Patient: 35min - Pending Discharge Pending Discharge Within 24 Hours: No Pending Discharge Within 48 Hours: No ICD10 Worksheet Patient Problems: Problems Problem Status Onset Suicidal ideation Acute
[2017-03-12] MEDS: risperiDONE 1 MG TAB PO SCH (21:34)
[2017-03-13] MEDS: clonazePAM 0.5 MG TAB PO SCH (08:43)
[2017-03-13] MEDS: risperiDONE 1 MG TAB PO SCH ×2 (08:43→21:06)
[2017-03-13] MEDS: LORazepam 0.5 MG TAB PO PRN ×2 (13:39→17:32)
[2017-03-13] MEDS: OLANZapine 5 MG TAB PO PRN (15:41)
[2017-03-13] MEDS: VENLAFAXINE XR 37.5 MG CAP PO SCH (17:31)
[2017-03-13] MEDS: GABAPENTIN 100 MG CAP PO SCH (21:06)
[2017-03-13] MEDS: traZODone 100 MG TAB PO SCH (21:06)
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
[2017-03-14] MEDS: GABAPENTIN 100 MG CAP PO SCH ×4 (05:54→17:58)
[2017-03-14 06:34] VITALS: BP 100/58; PULSE 64; RESP 12; TEMP 97.3
[2017-03-14] MEDS: risperiDONE 1 MG TAB PO SCH ×2 (10:24→20:45)
[2017-03-14] MEDS: VENLAFAXINE XR 37.5 MG CAP PO SCH (10:24)
[2017-03-14] MEDS: traZODone 100 MG TAB PO SCH (20:44)
[2017-03-14] MEDS: OLANZapine 5 MG TAB PO PRN (21:15)
[2017-03-14] MEDS: LORazepam 0.5 MG TAB PO PRN (21:16)
[2017-03-15] MEDS: VENLAFAXINE XR 37.5 MG CAP PO SCH (09:07)
[2017-03-15] MEDS: GABAPENTIN 100 MG CAP PO SCH ×3 (09:07→17:48)
[2017-03-15] MEDS: risperiDONE 1 MG TAB PO SCH ×2 (09:07→21:01)
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
--- NOTE | 2017-03-15 12:49 | SOAPPROG ---
SOAP Progress Note Assessment/Plan: Assessment: 21yo transgender male admitted with SI/HI from crisis clinic after discharge from [facility] Has been hospitalized several times since 11/2016 after relationship loss, and previously only 2x inpt at age 16 (OD on psych meds) and [address] Mathews' notes: 03/14/17 PLAN: -START Effexor XR 37.5mg 1st dose now, and again in AM, uptitrate over w/e as tolerated to more therapeutic dose for PTSD/depr/anxiety. Discussed risks/benefits and pt agreed to trial. -DISCONTINUE Klonopin 0.5mg bid and monitor, would like mgmt of anxiety with no BZDs before d/c due to associated risks. Using PRN ativan 1mg x 2 today. Will also decr dosing and avail frequency of Ativan until d/c. States hydroxyzine not helpful for anxiety. Has been on Gabapentin before. Willing to resume. -START Gabapentin, schedule 100mg QID and incr as tolerated over w/e for anxiety /mood. Had been on in past, will schedule this (pt prefers sched to prn). -Cont Risperdal 1mg bid. tolerating w/o s/e. seems helping w/AH. -Incr trazodone to 200mg hs. states this is home dose, and has still been w/ trouble sleeping. -Therapist providing pt w/DBT materials and will try to work w/pt on some skill dvpmt -Cont to encourage group attendance and participation -spoke w/Dr. Payne this afternoon. willing to take pt back to [facility] with clear d/c date (of 1-2wk after arrival) and with d/c plans in place. Would have availability early next week. Transition to lesser acuity of care but still w/ structure felt to be necessary, instead of prison, to cont monitoring/ adjustment of meds, working more intensely on coping skill development/practice as able/available, continued coordination of outpt care w/F and in [place], and maintenance of safety. Late entry for 03/14/17: PLAN: -incr gabapentin to 200mg TID, sched 8a,1p,6p. add 100mg bid prn anxiety. -off klonopin. plan d/c prn ativan -incr Effexor XR to 75mg qd. no s/e but no benefits noted so far. -cont Trazodone 200mg qhs. pt finds this helpful, easier to fall asleep with this dose. -cont Risperdal 1mg bid. denied s/e. reports no AH since started this med. -need to find out insurance coverage options in [place] so pt can get established with local MH services and PCP (as he is interested in transitioning F to M gender). -plan d/c to [facility] 03/17. 03/15/17 12:49 Plan: 1. CCM - patient has no SE's from any meds. Dr. Mathews adjusted medications most recently on Friday03/14/17, just one day ago. There is no reason to change dose of Effexor which patient has not been taking for sufficient period of time to notice any benefit from yet. 2. Patient has aftercare plan already in place that was worked out in conjunction with Dr. Payne and staff at [facility] and treatment team this week. Patient still plans to travel to [place] to stay with [facility] after [facility]. 3. Likely to d/c on Friday to [facility]. 4. Patient denies any SI/HI this AM, and denies any sxs of psychosis. Subjective: Met with patient, reviewed chart and discussed with staff. Patient states he is "fine" and denies any problems. MD inquires about recent statements of SI/HI. He says "I don't have those today," but patient adds, "I just woke up and went to art therapy group." He says he enjoys art therapy and usually feels "much better" after one of these groups. Patient talks about plans to transition to stepdown at [facility] and says he "likes it there" very much and likes the staff there. Objective: Vital Signs Temp Pulse Resp BP Pulse Ox 36.3 C 64 12 100/58 L 96 03/14/17 06:00 03/14/17 06:00 03/14/17 06:00 03/14/17 06:00 03/14/17 06:00 MSE: Calm, cooperative, limited eye contact, more engaged when MD saw him participating in group therapy, less engaged in 1:1 meeting with MD. Affect: Flat Mood: "Fine" TP: Linear TC: Denies any SI/HI, denies AH/VH, no evidence of psychosis Insight/Judgment: Fair - Time Spent With Patient Time Spent With Patient: 20" - Pending Discharge Pending Discharge Within 24 Hours: No Pending Discharge Within 48 Hours: Yes Pending Discharge Date: 03/17/17 (Plan is to d/c to [facility] on 03/17/17) Pending Discharge Time: 11:00 ICD10 Worksheet Patient Problems: Problems Problem Status Onset Suicidal ideation Acute
[2017-03-15] MEDS: traZODone 100 MG TAB PO SCH (21:01)
[2017-03-16] MEDS: GABAPENTIN 100 MG CAP PO PRN ×2 (06:45→21:08)
[2017-03-16] MEDS: GABAPENTIN 100 MG CAP PO SCH ×3 (08:50→17:50)
[2017-03-16] MEDS: VENLAFAXINE XR 37.5 MG CAP PO SCH (08:50)
[2017-03-16] MEDS: risperiDONE 1 MG TAB PO SCH ×2 (08:50→21:05)
--- NOTE | 2017-03-16 12:16 | SOAPPROG ---
SOAP Progress Note Assessment/Plan: Assessment: 21yo transgender male admitted with SI/HI from crisis clinic after discharge from [facility] Has been hospitalized several times since 11/2016 after relationship loss, and previously only 2x inpt at age 16 (OD on psych meds) and [address] Mathews' notes: 03/14/17 PLAN: -START Effexor XR 37.5mg 1st dose now, and again in AM, uptitrate over w/e as tolerated to more therapeutic dose for PTSD/depr/anxiety. Discussed risks/benefits and pt agreed to trial. -DISCONTINUE Klonopin 0.5mg bid and monitor, would like mgmt of anxiety with no BZDs before d/c due to associated risks. Using PRN ativan 1mg x 2 today. Will also decr dosing and avail frequency of Ativan until d/c. States hydroxyzine not helpful for anxiety. Has been on Gabapentin before. Willing to resume. -START Gabapentin, schedule 100mg QID and incr as tolerated over w/e for anxiety /mood. Had been on in past, will schedule this (pt prefers sched to prn). -Cont Risperdal 1mg bid. tolerating w/o s/e. seems helping w/AH. -Incr trazodone to 200mg hs. states this is home dose, and has still been w/ trouble sleeping. -Therapist providing pt w/DBT materials and will try to work w/pt on some skill dvpmt -Cont to encourage group attendance and participation -spoke w/Dr. Payne this afternoon. willing to take pt back to [facility] with clear d/c date (of 1-2wk after arrival) and with d/c plans in place. Would have availability early next week. Transition to lesser acuity of care but still w/ structure felt to be necessary, instead of alf, to cont monitoring/ adjustment of meds, working more intensely on coping skill development/practice as able/available, continued coordination of outpt care w/F and in [place], and maintenance of safety. Late entry for 03/14/17: PLAN: -incr gabapentin to 200mg TID, sched 8a,1p,6p. add 100mg bid prn anxiety. -off klonopin. plan d/c prn ativan -incr Effexor XR to 75mg qd. no s/e but no benefits noted so far. -cont Trazodone 200mg qhs. pt finds this helpful, easier to fall asleep with this dose. -cont Risperdal 1mg bid. denied s/e. reports no AH since started this med. -need to find out insurance coverage options in [place] so pt can get established with local MH services and PCP (as he is interested in transitioning F to M gender). -plan d/c to [facility] 03/17. 03/15/17 12:49 Plan: 1. CCM - patient has no SE's from any meds. Dr. Mathews adjusted medications most recently on Friday03/14/17, just one day ago. There is no reason to change dose of Effexor which patient has not been taking for sufficient period of time to notice any benefit from yet. 2. Patient has aftercare plan already in place that was worked out in conjunction with Dr. Payne and staff at [facility] and treatment team this week. Patient still plans to travel to [place] to stay with [facility] after [facility]. 3. Likely to d/c on Friday to [facility]. 4. Patient denies any SI/HI this AM, and denies any sxs of psychosis. 03/16/17 12:12 Plan: 1. CCM - patient has brighter affect and is engaged in playing cards and Scrabble with peer, participating in groups and milieu activities, less isolative 2. Likely to d/c to [facility] tomorrow Subjective: Met with patient and discussed with staff. Patient presents with brighter affect this AM, is actually observed smiling while interacting with peers. Was playing Scrabble and cards with peers this AM. Patient denied any thoughts, plan or intent to hurt himself or anyone else today. This is the second day in a row that patient has denied any SI/HI. Patient also denies any AH/VH. Objective: Vital Signs Temp Pulse Resp BP Pulse Ox 36.3 C 64 12 100/58 L 96 03/14/17 06:00 03/14/17 06:00 03/14/17 06:00 03/14/17 06:00 03/14/17 06:00 MSE: Calm, cooperative, sitting in dining room and day room watching TV, playing games. Affect: Euthymic Mood: "OK" TP: Linear, goal-directed TC: Denies any AH/VH, no SI/HI, no evidence of paranoia or delusions Insight/ Judgment: Improved - Time Spent With Patient Time Spent With Patient: 20" - Pending Discharge Pending Discharge Within 24 Hours: Yes Pending Discharge Date: 03/17/17 (Plan to d/c to [facility] on 03/17/17) Pending Discharge Time: 11:00 ICD10 Worksheet Patient Problems: Problems Problem Status Onset Suicidal ideation Acute
[2017-03-16] MEDS: traZODone 100 MG TAB PO SCH (21:04)
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
[2017-03-17] MEDS: GABAPENTIN 100 MG CAP PO SCH (08:50)
[2017-03-17] MEDS: VENLAFAXINE XR 37.5 MG CAP PO SCH (08:50)
[2017-03-17] MEDS: risperiDONE 1 MG TAB PO SCH (08:50)
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
== END 2017-03-17 10:50 | DRG 880 ==
LOC: BBEH 19:35
PROVIDERS: ADMIT Specialist; ATTEND Psychiatry & Neurology Behavioral Neurology & Neuropsychiatry
DX: R45.851 Suicidal ideations (principal); F60.3 Borderline personality disorder; F32.9 Major depressive disorder, single episode, unspecified; F43.12 Post-traumatic stress disorder, chronic; F64.0 Transsexualism; S69.81XA Other specified injuries of right wrist, hand and finger(s), initial encounter; F17.210 Nicotine dependence, cigarettes, uncomplicated; F12.90 Cannabis use, unspecified, uncomplicated; W22.09XA Striking against other stationary object, initial encounter; G47.63 Sleep related bruxism; Z62.810 Personal history of physical and sexual abuse in childhood; Z88.8 Allergy status to other drugs, medicaments and biological substances; Z59.0 Homelessness